=== PATIENT | female | born 2000 ===

== ENCOUNTER 2022-02-14 12:49 | Emergency (ER) | payer OTHER ==
--- NOTE | 2022-02-14 12:57 | Emergency Department Report ---
Blank Doc - Documentation Documentation: 21-year-old female that presents with right eyelid swelling. Exam is consistent with most likely an abscess formation. 1- This is a initial triage assessment/medical screening only. Full assessment and work-up will be completed once the patient is in proper hospital gown, ED bed and in a private room setting. This initial assessment/diagnostic orders/clinical plan/ treatment(s) is/are subject to change based on pt's health status, clinical progression and re-assessment by fellow clinical providers in the ED. Further treatment and workup at subsequent clinical providers discretion. Patient/guardians urged not to elope from ED as their condition may be serious if not clinically assessed and managed. The patient was evaluated in the emergency department for symptoms described in the history of present illness. He/she was evaluated in the context of the global COVID-19 pandemic, which necessitated consideration that the patient might be at risk for infection with the virus that causes COVID-19. Institutional protocols and algorithms that pertain to the evaluation of patients at risk for COVID-19 are in a state of rapid change based on information released by regulatory bodies including the CDC and federal and state organizations. These policies and algorithms were followed during the patient's care in the emergency department. Please note that these policies, procedures and recommendations changed on a rapid basis.
--- NOTE | 2022-02-14 16:44 | Emergency Department Report ---
- General Chief complaint: Skin/Abscess/Foreign Body Stated complaint: RT EYE SORE Time Seen by Provider: 02/14/22 12:53 Source: patient Mode of arrival: Ambulatory Limitations: No Limitations - History of Present Illness MD complaint: abscess/boil -: Gradual, week(s) (2) Location: face Severity: moderate Severity scale (0 -10): 5 Quality: aching Consistency: constant Worsens with: palpation Associated symptoms: denies other symptoms Treatments Prior to Arrival: none - Related Data Previous Rx's Medication Instructions Recorded Last Taken Type Mupirocin [Bactroban 2%] 1 applic TP BID #1 tube 02/14/22 Unknown Rx Allergies Allergy/AdvReac Type Severity Reaction Status Date / Time No Known Allergies Allergy Unverified 02/14/22 16:48 Abscess Boil HPI - HPI Chief Complaint: Skin/Abscess/Foreign Body Stated Complaint: RT EYE SORE Time Seen by Provider: 02/14/22 12:53 Home Medications: Previous Rx's Medication Instructions Recorded Last Taken Type Mupirocin [Bactroban 2%] 1 applic TP BID #1 tube 02/14/22 Unknown Rx Allergies/Adverse Reactions: Allergies Allergy/AdvReac Type Severity Reaction Status Date / Time No Known Allergies Allergy Unverified 02/14/22 16:48 ED Review of Systems ROS: Stated complaint: RT EYE SORE Other details as noted in HPI Comment: All other systems reviewed and negative Constitutional: denies: chills, fever Eyes: eye pain. denies: vision change Respiratory: denies: shortness of breath Cardiovascular: denies: chest pain, palpitations Gastrointestinal: denies: abdominal pain, nausea, vomiting Musculoskeletal: denies: back pain Neurological: denies: headache, weakness ED Past Medical Hx - Past Medical History Previous Medical History?: No - Surgical History Past Surgical History?: No - Social History Smoking Status: Never Smoker - Medications Home Medications: Home Medications Medication Instructions Recorded Confirmed Last Taken Type Mupirocin [Bactroban 2%] 1 applic TP BID #1 tube 02/14/22 Unknown Rx ED Physical Exam - General Limitations: No Limitations General appearance: alert, in no apparent distress - Head Head exam: Present: atraumatic, normocephalic - Eye Eye exam: Absent: normal appearance (abscess 1 cm in diameter noted to right upper eyelid), conjunctival injection - Neck Neck exam: Present: normal inspection - Respiratory Respiratory exam: Absent: respiratory distress - Cardiovascular Cardiovascular Exam: Present: regular rate - GI/Abdominal GI/Abdominal exam: Absent: distended - Extremities Exam Extremities exam: Present: normal inspection - Back Exam Back exam: Present: normal inspection - Neurological Exam Neurological exam: Present: alert, oriented X3 - Psychiatric Psychiatric exam: Present: normal affect, normal mood - Skin Skin exam: Present: warm, dry, intact, normal color ED Course Vital Signs 02/14/22 12:52 Temperature 98.4 F Pulse Rate 69 Respiratory 14 Rate Blood Pressure 121/70 O2 Sat by Pulse 98 Oximetry - I & D Right Upper Eye Type of Procedure: Simple Site: right upper eye lid Blade Size: 19 g needle I & D Procedure: betadine prep Progress: Area cleaned with betadine then ns then one single needle stick to area performed then copious amounts of serosanquineous drainage noted. Patient tolerated well. sterile dsg then placed over area. ED Medical Decision Making - Medical Decision Making 15-year-old black male with no past medical history presents to the emergency department with his father for evaluation of left elbow abscess. He states that he was bitten by something 2 or 3 days ago and has had increased swelling to the area since then. He denies fever, nausea, and vomiting. I and D performed my procedure note and patient tolerated well. Patient will be discharged home with bactroban ointment to use bid. She is advised to follow up with her pcp if no improvement or worsening symptoms and return to Ed as needed. Critical care attestation.: If time is entered above; I have spent that time in minutes in the direct care of this critically ill patient, excluding procedure time. ED Disposition Clinical Impression: Abscess of eyelid, right Qualifiers: Eyelid: upper Qualified Code(s): H00.031 - Abscess of right upper eyelid Disposition: HOME / SELF CARE / HOMELESS Is pt being admited?: No Does the pt Need Aspirin: No Condition: Stable Instructions: Skin Abscess, [id number] Additional Instructions: Use medications as directed.Follow up with pcp if no improvement or worsening symptoms. Return to ED if you develop fever, changes in vision or any other concerning symptoms. Prescriptions: Mupirocin [Bactroban 2%] 1 applic TP BID #1 tube Referrals: CADENCE BALDERAS MD [Staff Physician] - 3-5 Days Time of Disposition: 16:50
[2022-02-14 17:03] VITALS: BP 118/69
[2022-02-14] MEDS ORDERED: KETOROLAC 10 MG TAB PO ONE (17:20)
== END 2022-02-14 18:00 | disposition home or self-care (01) ==
LOC: ED 12:49
DX: H00.031 Abscess of right upper eyelid (principal); Z79.899 Other long term (current) drug therapy
CPT/HCPCS: 99282